=== PATIENT | male | born 1970 | race Caucasian/White ===

== ENCOUNTER 2017-12-28 04:03 | Emergency (ER) | payer SELFPAY ==
[2017-12-28 04:10] VITALS: BP 155/137; PULSE 70; RESP 18; TEMP 36.6; O2SAT 98; BMI 26.4
--- NOTE | 2017-12-28 04:16 | ED.ABDPAIN ---
HPI - Abdominal Pain General Chief Complaint: Abdominal Pain Stated Complaint: MEAT STUCK IN THROAT VOMITING Time Seen by Provider: 12/28/17 04:16 Source: patient Mode of arrival: ambulatory Limitations: no limitations History of Present Illness HPI narrative: The patient was eating steak yesterday evening, about 4:00 p.m.. He developed obstruction to the lower esophagus. He has lower sternal chest pain, and vomiting of sputum since onset of symptoms. He has had issues with swallowing throughout his life, and was seen here last year. He was successfully treated in the ER August 2016 for an esophageal foreign body. he underwent a follow-up endoscopy, revealing gastritis and esophagitis. There is a stricture to the distal esophagus which was dilated. He has done well over the past year until tonight. He is having no dyspnea or cough. He is having no diarrhea. He has lower sternal/epigastric pain, there is no radiation of pain to the back. Related Data Home Medications Medication Instructions Recorded Confirmed albuterol sulfate [Ventolin HFA] 2 puff INH PRN #0 11/10/11 fexofenadine 180 mg PO QDAY #0 11/10/11 fluoxetine 40 mg PO QDAY #0 11/10/11 Previous Rx's Medication Instructions Recorded omeprazole 20 mg PO BID #60 tab 10/03/16 Allergies Allergy/AdvReac Type Severity Reaction Status Date / Time codeine [CODEINE] Allergy Mild DIZZY AND Verified 12/28/17 04:15 PROJECTILE VOMITING Review of Systems Constitutional Denies chills, Denies fever(s), Denies lethargy and Denies weakness ENT Ears, Nose, Mouth, and Throat: Denies mouth pain, Denies sore throat, Denies throat swelling and Denies tongue swelling Cardiovascular Denies pedal edema, Denies irregular heart rhythm, Denies dyspnea, Denies dyspnea on exertion and Reports other ( xiphoid area chest pain) Respiratory Denies cough, Denies dyspnea, Denies dyspnea on exertion and Denies wheezing Gastrointestinal Gastrointestinal: Reports abdominal pain ( epigastric), Denies change in bowel habits, Denies diarrhea, Denies nausea and Reports vomiting Neurologic Denies weakness Allergic/Immunologic Denies throat swelling, Denies tongue swelling and Denies wheezing PFSH Medical History Allergy-induced asthma (Acute) Depression (Acute) Esophageal stricture (Acute) Esophagitis (Acute) Gastritis (Acute) Hx of endoscopy (Acute) Social History Smoking Status: Never smoker Smokeless tobacco user: chewing tobacco Exam Initial Vital Signs Initial Vital Signs: Vital Signs Temperature 97.9 F 12/28/17 04:10 Pulse Rate 70 12/28/17 04:10 Respiratory Rate 18 12/28/17 04:10 Blood Pressure 155/137 H 12/28/17 04:10 Pulse Oximetry 98 12/28/17 04:10 Const General: cooperative and well developed Nutritional Appearance: well nourished Orientation: alert, awake and oriented x3 HENMT Mouth: oral mucosae normal Throat: posterior oropharynx normal, tonsils normal and uvula midline Neck Neck: normal visual inspection, trachea midline, supple, No lymphadenopathy, No midline deformity and No JVD Lymphatic: No lymphedema Chest Chest: normal palpation of entire chest wall Resp Effort & Inspection: normal respiratory effort, able to speak in complete sentences, no respiratory distress and no use of accessory muscles Auscultation: clear to auscultation bilaterally, no rales, no rhonchi and no wheezes Cardio Rate: regular rate Rhythm: regular rhythm Heart Sounds: no click, no gallops, no murmurs and no rubs Pulses: normal peripheral pulses GI Inspection: non-distended Palpation: soft, no hepatosplenomegaly, No pulsatile mass and tender ( epigastric tenderness without guarding or rebound.) Auscultation: normal bowel sounds Skin General: no rashes or lesions noted Neuro General: alert, oriented x3 and no focal motor deficits Speech: speech normal Course Hospital Course: The patient was given IV glucagon, and IV Protonix. 5-10 minutes after receiving glucagon the patient was given warm cola swallow. He successfully passed the esophageal foreign body into his stomach, symptoms are quickly resolving. He is able to swallow without nausea or vomiting. Orders Ordered: Discontinued Medications Glucagon (Glucagen) 1 mg IV NOW ONE Stop: 12/28/17 04:17 Last Admin: 12/28/17 04:34 Dose: 1 mg Pantoprazole Sodium (Protonix) 40 mg IV NOW ONE Stop: 12/28/17 04:38 Last Admin: 12/28/17 04:40 Dose: 40 mg Vital Signs - 8 hr 12/28/17 04:10 12/28/17 05:12 Temperature 97.9 F Pulse Rate 70 67 Respiratory Rate 18 18 Blood Pressure 155/137 H 115/79 Pulse Oximetry 98 99 Discharge Plan Departure Patient Disposition: Home, Self-Care Clinical Impression: Esophageal foreign body Discharge Date/Time: 12/28/17 05:15 Interventions: ED Discharge Assessment Last Done: 12/28/17 05:12 Instructions: Steakhouse Syndrome Activity Restrictions/Additional Instructions: Chew your food, especially meats, thoroughly. Drink plenty of water while eating. Follow up with Dr. Lorenzo, surgery. Return to the ER if worse. Prescriptions: No Action fexofenadine 180 MG tablet 180 mg PO QDAY Qty: 0 RF: 0 albuterol sulfate [Ventolin HFA] 90 MCG/PUFF HFA aerosol inhaler 2 puff INH PRN Qty: 0 RF: 0 fluoxetine 40 MG capsule 40 mg PO QDAY Qty: 0 RF: 0 omeprazole 20 MG tablet,delayed release (DR/EC) 20 mg PO BID Qty: 60 RF: 3 Referrals: Bg Lorenzo MD [Primary Care Provider] -
[2017-12-28] MEDS: GLUCAGON,HUMAN RECOMBINANT 1 MG/ML VIAL IV (04:34)
[2017-12-28] MEDS: PANTOPRAZOLE 40 MG VIAL IV (04:40)
--- NOTE | 2017-12-28 04:48 | PC.NURSE ---
Glucagon and Protonix given IV followed by Cola by mouth. Pt reports relief.
[2017-12-28 05:12] VITALS: BP 115/79; PULSE 67; RESP 18; O2SAT 99
== END 2017-12-28 05:15 | disposition home or self-care (01) ==
PROVIDERS: Emergency Provider Emergency Medicine; PCP Specialist
DX: T18.108A Unspecified foreign body in esophagus causing other injury, initial encounter (principal)
CPT/HCPCS: 36591; 96374; 96375; 99282; 99284; C9113; J1610

== ENCOUNTER → 2022-11-10 15:10 | Outpatient (ROUT) | payer OTHER, SELFPAY ==
[2022-11-10 16:02] LABS: Testosterone 149 ng/dL (71.8-623)
== END ==
PROVIDERS: PCP Specialist; Visit Provider Family Medicine
DX: E34.9 Endocrine disorder, unspecified (principal)
CPT/HCPCS: 84403

== ENCOUNTER → 2022-11-27 15:33 | Outpatient (ROUT) | payer OTHER, SELFPAY ==
[2022-11-27 16:22] LABS: Testosterone 1720 ng/dL (71.8-623)
== END ==
PROVIDERS: PCP Specialist; Visit Provider Family Medicine
DX: E29.1 Testicular hypofunction (principal)
CPT/HCPCS: 84403

== ENCOUNTER → 2023-01-01 09:30 | Outpatient (CLI) | payer OTHER, SELFPAY ==
--- NOTE | 2023-01-01 | DI.RAD.S_ITS ---
PROCEDURE: FL BARIUM SWALLOW INDICATIONS: ESOPHAGEAL STENOSIS COMPARISON: None. FINDINGS: Function: There is normal esophageal peristalsis. Gastroesophageal reflux is seen with reflux of contrast to the upper esophagus. There is abnormal transit of a calibrated barium tablet. It remained in the lower esophagus and did not pass into the stomach. Morphology: Air-contrast images demonstrate normal mucosal morphology. Single contrast views show no esophageal strictures, extrinsic mass effects, or diverticula. Limited images of the stomach demonstrate normal appearance. IMPRESSION: Esophageal dysmotility and gastroesophageal reflux. No strictures, extrinsic masses or diverticula seen. Dictated by: Dasia Graham M.D. on 01/03/2023 at 11:40 Approved by: Dasia Graham M.D. on 01/03/2023 at 11:45
== END ==
LOC: RAD 09:32
PROVIDERS: PCP Family Medicine; Referring Provider Family Medicine; Visit Provider Family Medicine
DX: K22.2 Esophageal obstruction (principal); K21.9 Gastro-esophageal reflux disease without esophagitis
CPT/HCPCS: 74220

== ENCOUNTER → 2023-10-14 07:28 | Outpatient (CLI) | payer OTHER, SELFPAY ==
[2023-10-14 09:44] LABS: Add Manual Diff / Slide Review NO; Basophils Absolute Auto 0 /uL (0-100); Basophils Percent Auto 0.7 % (0-2); Eosinophils Absolute Auto 300 /uL (0-450); Eosinophils Percent Auto 6.5 % (2-4); Hematocrit 42.5 % (41-53); Hemoglobin 14.3 g/dL (13.5-17.5); Lymphocytes Absolute Auto 1600 /uL (1100-4500); Lymphocytes Percent Auto 36.8 % (25-40); Mean Corpuscular HGB Conc 33.6 % (30-36); Mean Corpuscular Hemoglobin 26.2 PG (26-34); Monocytes Absolute Auto 300 /uL (0-900); Neutrophils Absolute Auto 2000 /uL (1500-7000); Platelet Count 288 X10^3/uL (150-400); Red Blood Cell Count 5.45 X10^6/uL (4.5-5.9); Red Cell Distribution Width 13.9 % (11.6-14.8); White Blood Cell Count 4.3 X10^3/uL (4.5-11.0)
[2023-10-14 10:00] LABS: Erythrocyte Sedimentation Rate 2 MM/HR (0-15)
[2023-10-14 10:09] LABS: Hemoglobin A1C% w Est Avg Glu 5.3 % (4.0-6.0)
[2023-10-14 10:19] LABS: Alanine Aminotransferase 24 IU/L (<50); Albumin 4.5 g/dL (3.5-5.0); Albumin Globulin Ratio 1.8 (1.0-2.8); Alkaline Phosphatase 46 U/L (38-126); Aspartate Aminotransferase 29 IU/L (17-59); Bilirubin Total 0.7 mg/dL (0.2-1.3); Blood Urea Nitrogen 8 mg/dL (9-20); C-Reactive Protein Quant < 0.5 mg/dL (<1.0); Calcium 9.3 mg/dL (8.4-10.2); Carbon Dioxide 31 mmol/L (22-32); Chloride 103 mmol/L (98-107); Creatine Kinase 105 U/L (55-170); Estimated Glomerular Filt Rate > 60 mL/min (>60); Globulin 2.5 g/dL (1.7-4.1); Glucose 100 mg/dL (70-100); HEMOLYSIS < 15 (0-50); Magnesium 2.1 mg/dL (1.6-2.3); Potassium 4.3 mmol/L (3.4-5.1); Sodium 140 mmol/L (137-145)
[2023-10-14 10:28] LABS: Follicle Stimulating Hormone 5.15 mIU/mL
[2023-10-14 10:51] LABS: Ferritin 71 ng/mL (18-464)
[2023-10-14 13:06] LABS: Prolactin 8.9 ng/mL (3.7-17.9)
[2023-10-16 15:13] LABS: H. Pylori Antigen Stool Negative (Negative)
[2023-10-19 17:19] LABS: ANA Screen, IFA Negative (.)
== END ==
PROVIDERS: PCP Family Medicine; Referring Provider Family Medicine; Visit Provider Family Medicine
DX: R53.83 Other fatigue (principal); E29.1 Testicular hypofunction; M79.10 Myalgia, unspecified site; M25.50 Pain in unspecified joint; D64.9 Anemia, unspecified
CPT/HCPCS: 36415; 80053; 82550; 82728; 83001; 83002; 83036; 83735; 84146; 85025; 85651; 86038; 86140; 87177; 87338